=== PATIENT | male | born 1950 | race Hispanic/Latino ===

== ENCOUNTER 2023-12-09 10:05 | Inpatient (IN) | payer OTHER ==
[2023-12-09 10:33] LABS: Absolute Basophils 0.1 K/uL (0-0.5); Absolute Eosinophils 0.4 K/uL (0-0.5); Absolute Lymphocytes (CBC) 2.9 K/uL (0.7-4.9); Absolute Monocytes 1.1 K/uL (0.1-1.3); Absolute Neutrophil 5.7 K/uL (1.8-8.0); Basophils % 0.9 % (0-1.3); Eosinophils % 3.8 % (0-4.4); Hematocrit 30.7 % (39.6-49.0); Hemoglobin 10.3 g/dL (13.6-17.9); Lymphocytes % 28.3 % (15.3-44.8); MCH 32.3 pg (27.0-35.0); MCHC 33.5 g/dL (32.0-36.0); MCV 96.5 fL (80-100); MPV 9.4 fL (7.6-11.3); Nucleated Red Blood Cells % 0.1 % (0-0); Platelets 233 thou/uL (152-406); RBC Red Blood Cell Count 3.19 M/uL (4.33-5.43); Red Cell Distribution Width 16.4 % (12.1-15.2)
[2023-12-09 10:38] LABS: PT Prothrombin Time 10.4 SECONDS (9.4-12.5); PTT, Activated Partial Thromb 28.4 SECONDS (24.3-36.9); Protime INR 0.93
[2023-12-09] MEDS ORDERED: NA CHLORIDE 0.9% 250 ML ONE (11:02)
[2023-12-09] MEDS ORDERED: CEFTRIAXONE 1000 MG/VIAL ONE (11:02)
[2023-12-09] MEDS ORDERED: AZITHROMYCIN 500 MG INJ IVPB ONE (11:02)
[2023-12-09] MEDS ORDERED: NA CHLORIDE 0.9% 100 ML ONE (11:07)
--- NOTE | 2023-12-09 11:18 | RAD REPORT ---
Procedure: Chest Single View HISTORY: Short of breath COMPARISON: none FINDINGS: Mild bilateral pulmonary opacities. No significant pleural effusion noted. The heart is borderline enlarged. IMPRESSION: Mild bilateral pulmonary opacities probably mild interstitial pulmonary edema
[2023-12-09 11:44] LABS: Albumin 3.4 g/dL (3.4-5.0); Anion Gap 8.7 mEq/L (5.0-15.0); Bilirubin Total 0.5 mg/dL (0.2-1.0); Globulin 3.5 g/dL (2.3-3.5); Potassium 3.7 mEq/L (3.5-5.1); Protein, Total 6.9 g/dL (6.4-8.2)
[2023-12-09 11:52] LABS: Troponin High Sensitivity 164.3 pg/mL (<58.9)
--- NOTE | 2023-12-09 12:15 | EDPHYS ---
Physician Documentation [facility] Name: Chuck Caruso Age: 73 yrs Sex: Male : 1950 Arrival Date: 12/09/2023 Time: 10:05 Bed 8 Private MD: ED Physician Dequan Resendiz HPI: 12/08 12:46 This 73 yrs old Male presents to ER via EMS with complaints of Shortness Of kb Breath. 12:46 Pt is a 73 year old male who presents for shortness of breath that started this kb morning. Denies chest pain, fever, cough . Denies alleviating factors. Aggravated by exertion. . Historical: - Allergies: 10:13 No Known Allergies; ap3 - Immunization history:: Adult Immunizations unknown. - Infectious Disease History:: Denies. - Social history:: Smoking status: Patient denies any tobacco usage or history of. ROS: 10:21 Constitutional: As per HPI kb Exam: 10:19 Constitutional: This is a well developed, well nourished patient who is awake, alert, kb and in no acute distress. Head/Face: Normocephalic, atraumatic. ENT: Moist Mucous membranes Abdomen/GI: Soft, non-tender. No distention Skin: Warm, dry with normal turgor. Normal color. Neuro: Awake and alert, GCS 15, oriented to person, place, time, and situation. Moves all extremities 10:19 Cardiovascular: Rate: tachycardic, 10:19 Cardiovascular: Edema: 2+ edema to left lower extremity, 10:19 ECG was reviewed by the Attending Physician. 10:19 Respiratory: moderate respiratory distress is noted, Respirations: labored breathing, Breath sounds: wheezing: expiratory that is mild, is heard in the right middle lobe, right lower lobe, right posterior middle lobe and right posterior lower lobe, Vital Signs: 10:08 BP 119 / 61; Pulse 113; Resp 32; Temp 98.1; Pulse Ox 87% on 5 lpm NC; Weight 74.39 kg; ap3 Height 5 ft. 6 in. ; 10:36 BP 127 / 75; Pulse 85; Pulse Ox 99% on BiPAP; ap3 11:22 BP 120 / 60; Pulse 93; Resp 27; Pulse Ox 99% on BiPAP; ap3 13:23 BP 109 / 63; Pulse 75; Resp 18; Pulse Ox 98% on BiPAP; ap3 10:08 Body Mass Index 26.47 (74.39 kg, 167.64 cm) ap3 MDM: 10:54 Patient medically screened. kb 12:46 Differential diagnosis: CHF exacerbation, pulmonary edema, Pulmonary Embolism. Data kb reviewed: vital signs, nurses notes. Consideration of Admission/Observation Patient was admitted/placed on observation. Escalation of care including admission/observation considered. Management of patient was discussed with the following: Hospitalist: Dr Doherty accepts pt for admission. Historians other than the Patient: EMS: [facility]. Counseling: I had a detailed discussion with the patient and/or guardian regarding the historical points, exam findings, and any diagnostic results supporting the discharge/admit diagnosis, lab results, radiology results, the need for further work-up and treatment in the hospital. 12/08 10:17 Order name: Blood Culture Adult (2) kb 12/08 10:17 Order name: CBC with Diff; Complete Time: 10:53 kb 12/08 10:17 Order name: CMP; Complete Time: 11:53 kb 12/08 10:17 Order name: Lactate w/ 2H reflex if indic.; Complete Time: 10:53 kb 12/08 10:17 Order name: Protime (+inr); Complete Time: 10:53 kb 12/08 10:17 Order name: Ptt, Activated; Complete Time: 10:53 kb 12/08 10:17 Order name: Troponin High Sensitivity; Complete Time: 11:53 kb 12/08 12:10 Order name: BNP; Complete Time: 12:52 kb 12/08 12:53 Order name: Ghost Lactate-NO COLLECT Timer; Complete Time: 12:56 EDMS 12/08 13:27 Order name: PTT, Activated Partial Thromb; Complete Time: 09:59 EDMS 12/08 13:27 Order name: Basic Metabolic Panel EDMS 12/08 13:27 Order name: Basic Metabolic Panel; Complete Time: 09:59 EDMS 12/08 13:27 Order name: Basic Metabolic Panel EDMS 12/08 13:27 Order name: Basic Metabolic Panel EDMS 12/08 13:27 Order name: CBC with Automated Diff EDMS 12/08 13:27 Order name: CBC with Automated Diff; Complete Time: 09:59 EDMS 12/08 13:27 Order name: CBC with Automated Diff EDMS 12/08 13:27 Order name: CBC with Automated Diff EDMS 12/08 13:27 Order name: Troponin High Sensitivity EDMS 12/08 13:27 Order name: Troponin High Sensitivity; Complete Time: 09:59 EDMS 12/08 13:27 Order name: Troponin High Sensitivity; Complete Time: 09:59 EDMS 12/08 13:27 Order name: Troponin High Sensitivity; Complete Time: 09:59 EDMS 12/08 14:21 Order name: Lactate Sepsis 2 HR Follow-up; Complete Time: 14:21 EDMS 12/08 10:17 Order name: Chest Single View XRAY; Complete Time: 11:20 kb 12/08 13:27 Order name: Echo with Doppler EDMS 12/08 13:27 Order name: CONS Physician Consult EDMS 12/08 10:17 Order name: Accucheck; Complete Time: 10:31 kb 12/08 10:17 Order name: Cardiac monitoring; Complete Time: 10:28 kb 12/08 10:17 Order name: EKG - Nurse/Tech; Complete Time: 10:28 kb 12/08 10:17 Order name: IV Saline Lock - Large Bore; Complete Time: 10:28 kb 12/08 10:17 Order name: Labs collected and sent; Complete Time: 10:28 kb 12/08 10:17 Order name: O2 Per Protocol; Complete Time: 10:28 kb 12/08 10:17 Order name: O2 Sat Monitoring; Complete Time: 10:28 kb 12/08 10:17 Order name: Vital Signs; Complete Time: 10:28 kb 12/08 10:44 Order name: Labs - recollect needed; Complete Time: 10:56 eb EC:19 Rate is 101 beats/min. Rhythm is regular. QRS [place] is Normal. MN interval is normal at kb 146 msec. QRS interval is normal at 84 msec. QT interval is normal at 438 msec. Administered Medications: 11:21 Drug: Rocephin IV 1 grams IV at calculated rate once; Given slow IV push per pharmacy ap3 instructions Route: IV; Rate: calculated rate; Site: left hand; 12:04 Follow up: IV Status: Completed infusion; IV Intake: 50ml ap3 11:47 Drug: Zithromax IVPB 500 mg IVPB once over 1 hrs; mix in 250 mL NS Route: IVPB; Infused ap3 Over: 1 hrs; Site: left hand; 13:36 Follow up: IV Status: Completed infusion; IV Intake: 250ml ap3 13:05 Drug: Furosemide IVP 20 mg IVP once; give over 2 minutes Route: IVP; Site: left hand; mb9 13:36 Follow up: Response: No adverse reaction ap3 13:05 Drug: Aspirin PO Chewable Tablet 324 mg PO once; 81 mg tablets x 4 Route: PO; mb9 13:36 Follow up: Response: No adverse reaction ap3 Disposition: 12/09 09:58 Critical Care:. kb Disposition Summary: 12/09/23 12:14 Hospitalization Ordered Notes: Hospitalization Status: Inpatient Admission kb Provider: Олег Doherty Location: Telemetry/MedSur (Inpatient) kb Condition: Stable kb Problem: new kb Symptoms: are unchanged kb Bed/Room Type: Standard Room Assignment: 230(12/09/23 13:35) eb Diagnosis - Acute pulmonary edema kb - Elevated troponin kb Forms: - Medication Reconciliation Form kb - SBAR form kb - Leadership Thank You Letter kb Critical care time excluding procedures: 09:58 Critical care time: Bedside Care: 10 minutes, Consultation: 10 minutes, Family kb Intervention: 10 minutes. Total time: 30 minutes Addendum: 12/11/2023 17:55 I was immediately available for consultation during this patient's visit. I did not e c2 personally see the patient or discuss the patient with the ANDERS. . Signatures: Dispatcher [employer] EDMS Andree Morales, DEEPTI-C FILM PRINTER-Ckb Angela Herrera FNP-C FILM PRINTER-Csnw Whitney Guevara RN RN [email or web address] Casi Echeverria Mary Beth RN RN mb9 Dequan Resendiz MD MD ec2 Corrections: (The following items were deleted from the chart) 12/08 10:18 10:18 BLOOD CULTURE*+BA.LAB.BRZ ordered. EDMS EDMS 10:18 10:18 CBC+H.LAB.BRZ ordered. EDMS EDMS 10:18 10:18 COMPREHENSIVE METABOLIC PANEL+C.LAB.BRZ ordered. EDMS EDMS 10:18 10:18 LACTATE+C.LAB.BRZ ordered. EDMS EDMS 10:18 10:18 PROTIME (+INR)+COAG.LAB.BRZ ordered. EDMS EDMS 10:18 10:18 PTT, ACTIVATED+COAG.LAB.BRZ ordered. EDMS EDMS 10:18 10:18 Troponin High Sensitivity+C.LAB.BRZ ordered. EDMS EDMS 10:18 10:18 Chest Single View+RAD.RAD.BRZ ordered. EDMS EDMS 10:19 10:19 BiPap ([employer] Only)+RC.RAD.BRZ ordered. EDMS EDMS 12:10 12:10 PROBNP+C.LAB.BRZ ordered. EDMS EDMS 12:19 12:19 Chest For PE Angio+CT.RAD.BRZ ordered. EDMS EDMS 12:33 12:33 Chest For PE Angio+CT.RAD.BRZ ordered. EDMS EDMS 12:47 12:46 Pt is a 73 year old male who presents for shortness of breath that started this kb morning. Denies chest pain. Denies alleviating factors. Aggravated by exertion. . kb 13:35 12:14 kb eb
--- NOTE | 2023-12-09 12:15 | ER ---
Nurse's Notes [facility] Name: Chuck Caruso Age: 73 yrs Sex: Male : 1950 Arrival Date: 12/09/2023 Time: 10:05 Bed 8 Private MD: Diagnosis: Acute pulmonary edema;Elevated troponin Presentation: 12/08 10:08 Chief complaint: EMS states: they were called to the patient being short of breath and ap3 having chest pain. EMS started a 20g left hand and administered an A\T\A treatment and 125mg solumedrol IV X's 1 ALTERATIONS TAILOR. Coronavirus screen: Client presents with at least one sign or symptom that may indicate coronavirus-19. Ebola Screen: No symptoms or risks identified at this time. Initial Sepsis Screen: Does the patient meet any 2 criteria? RR > 20 per min. HR > 90 bpm. Yes Does the patient have a suspected source of infection? No. Patient's initial sepsis screen is negative. Risk Assessment: Do you want to hurt yourself or someone else? Patient reports no desire to harm self or others. Onset of symptoms was December 09, 2023 at 08:30. Care prior to arrival: Medication(s) given: Albuterol Neb x 1, Atrovent Neb x 1, solumedrol 125mg IV IV initiated. 20 GA, in the left hand. Transition of care: patient was not received from another setting of care. 10:08 Method Of Arrival: EMS: [facility] ap3 10:08 Acuity: HENRRY 2 ap3 Triage Assessment: 10:14 General: Appears distressed, Behavior is cooperative. Pain: Denies pain. Neuro: Level ap3 of Consciousness is awake, alert, obeys commands, Oriented to person, place, time, situation. Cardiovascular: Patient's skin is warm and dry. Respiratory: Reports shortness of breath Airway is patent Respiratory effort is labored, Respiratory pattern is tachypnea Onset: The symptoms/episode began/occurred this morning. Historical: - Allergies: 10:13 No Known Allergies; ap3 - Immunization history:: Adult Immunizations unknown. - Infectious Disease History:: Denies. - Social history:: Smoking status: Patient denies any tobacco usage or history of. Screenin:14 Abuse screen: Denies threats or abuse. Nutritional screening: No deficits noted. ap3 Tuberculosis screening: No symptoms or risk factors identified. 11:49 [facility] ED Fall Risk Assessment (Adult) History of falling in the last 3 months, ap3 including since admission No falls in past 3 months (0 pts) Confusion or Disorientation No (0 pts) Intoxicated or Sedated No (0 pts) Impaired Gait Yes (1 pt) Mobility Assist Device Used Yes (1 pt) Altered Elimination No (0 pt) Score/Fall Risk Level 3 or more points = High Risk Oriented to surroundings, Maintained a safe environment, Educated pt \T\ family on fall prevention, incl call for assistance when getting out of bed, Assessed \T\ reinforced patient's understanding of fall precautions, Hourly rounding (assess needs \T\ fall precautionary measures) done, Used ambulatory aids as needed (educated on \T\ assisted with), Used gait belt as appropriate Implemented a Fall Risk Plan of Care, Apply high fall risk patient identification: yellow non skid footwear/ fall signage, Remained w/in arm's length of patient and in sight while toileting, Offered frequent toileting (1:1 observation), Remained with patient while ambulating, Utilized family, sitter, or virtual litigation attorney as indicated. Assessment: 11:49 Reassessment: Patient and/or family updated on plan of care and expected duration. Pain ap3 level reassessed. General: Appears comfortable. Neuro: Level of Consciousness is awake, alert, obeys commands, Oriented to person, place, time, situation. Cardiovascular: Patient's skin is warm and dry. Respiratory: Airway is patent Respiratory effort is even, Respiratory pattern is regular, symmetrical, Patient placed on BiPAP:. 13:24 Reassessment: Patient and/or family updated on plan of care and expected duration. Pain ap3 level reassessed. Patient is alert, oriented x 3, equal unlabored respirations, skin warm/dry/pink. General: Appears in no apparent distress. comfortable, Behavior is calm, cooperative, appropriate for age. Neuro: Level of Consciousness is awake, alert, obeys commands, Oriented to person, place, time, situation. Vital Signs: 10:08 BP 119 / 61; Pulse 113; Resp 32; Temp 98.1; Pulse Ox 87% on 5 lpm NC; Weight 74.39 kg; ap3 Height 5 ft. 6 in. ; 10:36 BP 127 / 75; Pulse 85; Pulse Ox 99% on BiPAP; ap3 11:22 BP 120 / 60; Pulse 93; Resp 27; Pulse Ox 99% on BiPAP; ap3 13:23 BP 109 / 63; Pulse 75; Resp 18; Pulse Ox 98% on BiPAP; ap3 10:08 Body Mass Index 26.47 (74.39 kg, 167.64 cm) ap3 ED Course: 10:07 Patient arrived in ED. ap3 10:12 Dequan Resendiz MD is Attending Physician. ec2 10:13 Triage completed. ap3 10:13 Initial lab(s) drawn, by me, sent to lab. Inserted saline lock: 20 gauge in right mb9 forearm, using aseptic technique. Blood collected. Flushed with 10 mL NS. 10:14 Patient has correct armband on for positive identification. Bed in low position. Call ap3 light in reach. Side rails up X2. Client placed on continuous cardiac and pulse oximetry monitoring. NIBP monitoring applied. quality assurance monitor on. Pulse ox on. NIBP on. 10:15 Andree Morales FNP-C is [facility]. ec2 10:15 Whitney Guevara, FLORA is Primary Nurse. ap3 10:15 Arm band placed on right wrist. ap3 10:19 EKG done, by ED staff, by pet care technician. rs6 10:22 First set of blood cultures drawn by me. ap3 10:52 Notified Nurse Practitioner and/or Physician Log Getter of a critical lab result(s), ll1 lactate 2.3 DEEPTI Steve. 11:06 Chest Single View XRAY In Process Unspecified. EDMS 11:49 Warm blanket given. ap3 11:50 Provided Education on: medication prior to administration. ap3 11:52 Notified Nurse Practitioner and/or Physician Log Getter of a critical lab result(s), ll1 troponin 164.3. 12:14 Stephane Doherty MD is Hospitalizing Provider. kb 12:14 Олег Doherty MD is Hospitalizing Provider. kb 13:23 Radiology exam delayed due to IV insertion attempt and/or patient not having sm9 appropriate IV at this time. 14:50 No provider procedures requiring assistance completed. mb9 14:50 Patient admitted, IV remains in place. mb9 Administered Medications: 11:21 Drug: Rocephin IV 1 grams IV at calculated rate once; Given slow IV push per pharmacy ap3 instructions Route: IV; Rate: calculated rate; Site: left hand; 12:04 Follow up: IV Status: Completed infusion; IV Intake: 50ml ap3 11:47 Drug: Zithromax IVPB 500 mg IVPB once over 1 hrs; mix in 250 mL NS Route: IVPB; Infused ap3 Over: 1 hrs; Site: left hand; 13:36 Follow up: IV Status: Completed infusion; IV Intake: 250ml ap3 13:05 Drug: Furosemide IVP 20 mg IVP once; give over 2 minutes Route: IVP; Site: left hand; mb9 13:36 Follow up: Response: No adverse reaction ap3 13:05 Drug: Aspirin PO Chewable Tablet 324 mg PO once; 81 mg tablets x 4 Route: PO; mb9 13:36 Follow up: Response: No adverse reaction ap3 Medication: 11:50 VIS not applicable for this client. ap3 Intake: 12:04 IV: 50ml; Total: 50ml. ap3 13:36 IV: 250ml; Total: 300ml. ap3 Outcome: 12:14 Decision to Hospitalize by Provider. kb 14:50 Admitted to Med/surg mb9 14:50 Condition: stable 14:50 Instructed on the need for admit, 15:01 Patient left the ED. ap3 Signatures: Dispatcher [employer] Andree Griggs, DEEPTI-C WEIGHT CHECKER-CkWhitney Garcia RN RN ap3 Casi Echeverria Lynsay RN RN ana lilia1 Edwina Velasco RN RN mb9 Dequan Resendiz MD MD 2 Samreen Berg Leroy Hardy rs6 Corrections: (The following items were deleted from the chart) 10:44 10:35 Khurram the linux unix administrator aerospace control and warning systems for Dr. Chawla called asked for us to transport eb the patient to [facility] at [id number] in [place]/ the patient is a direct admit/ Dr. Resendiz has given report to Dr. Chawla so no nurse report needs to be given. eb
[2023-12-09] MEDS ORDERED: FUROSEMIDE 20 MG/ 2ML VIAL ONE (12:27)
[2023-12-09] MEDS ORDERED: ASPIRIN 81 MG CHEWABLE TABLET ONE (12:28)
--- NOTE | 2023-12-09 12:44 | P.HP ---
Certification for Inpatient Patient admitted to: Inpatient With expected LOS: >2 Midnights Patient will require the following post-hospital care: None Practitioner: I am a practitioner with admitting privileges, knowledge of patient current condition, hospital course, and medical plan of care. Services: Services provided to patient in accordance with Admission requirements found in Title 42 Section 412.3 of the Code of Federal Regulations Patient History Date of Service: 12/09/23 Primary Care Provider: Walt Gama MD Reason for admission: Chest pain, shortness of breath History of Present Illness: Mr. Caruso is a 73-year-old gentleman with a past medical history of hypertension, vascular disease/PVD, and recent AK. He states he was in his normal state of health when he went to sleep and awoke with significant chest pain and shortness of breath. EMS was called and he received Solu-Medrol, albuterol, and Atrovent en route to the emergency department. On arrival to the emergency department, his SpO2 was 87% on 5 L of O2. BiPAP was initiated on his arrival and now patient is comfortable, chest pain-free, and SpO2 is 99 to 100%. We will admit Mr. Caruso for further evaluation and treatment with consultation to cardiology. EKG sinus tach rhythm with possible lateral ischemia with flipped T waves in V5 and V6, rate 101 Labs: WBC 10.2, H/H 10.3/30.7 with anemia of chronic disease picture, INR 0.93, electrolytes unremarkable with a creatinine of 1.26, GFR 61 Lactic acid 2.3 and troponin 164.3, with a BNP of 6346 Imaging: Mild bilateral pulmonary opacities probably mild interstitial pulmonary edema, requested CT chest angio for PE rule out Allergies No Known Allergies Allergy (Unverified 12/09/23 13:03) Home medications list reviewed: Yes (Called [facility]) - Past Medical/Surgical History Has patient received pneumonia vaccine in the past: No -: Hypertension -: Vascular pathology -: AK denies stent placement -: CKD -: Right BKA -: Appendectomy -: Right shoulder surgery -: Bilateral peripheral bypass Psychosocial/ Personal History: Lives alone. AK in September 2023. Smokes half pack a week. Sees Dr. Binta HARDWICK MD and Dr. Vogt - Family History Father -: Cancer Mother -: Heart disease, Other (see notes) ( of cerebral aneurysm) Brother -: Heart disease, Hypertension, Other (see notes) (Triple bypass, a second brother of cerebral aneurysm) - Social History Smoking Status: Current every day smoker Counseled patient to stop smoking for: more than 10 minutes Smoking therapy provided: Yes Patient receptive to therapy: Yes (Down to half a pack a week) Alcohol use: No CD- Drugs: No Caffeine use: Yes Place of Residence: Home Review of Systems 10-point ROS is otherwise unremarkable General: Malaise ENT: Unremarkable Respiratory: Shortness of Breath, SOB with Excertion Cardiovascular: Chest Pain, Orthopnea Gastrointestinal: Unremarkable Genitourinary: Unremarkable Musculoskeletal: Pedal edema Integumentary: Unremarkable Neurological: Unremarkable Lymphatics: Unremarkable Physical Examination - Vital Signs Pulse: 88 Respirations: 20 Pulse Ox (%): 99 (On BiPAP) - Physical Exam General: Alert, In no apparent distress, Oriented x3 HEENT: Atraumatic, Normocephalic Neck: Supple Respiratory: Crackles/rales (Bilateral bases), Other (States he likes BiPAP, chest pain relieved) Cardiovascular: Regular rate/rhythm, Edema (Left lower extremity) Capillary refill: >2 Seconds Gastrointestinal: Soft and benign Musculoskeletal: Other (Right BKA) Integumentary: Other (Warm and dry) Neurological: Normal speech, Normal tone, Normal affect Lymphatics: No axilla or inguinal lymphadenopathy External genitalia: Deferred Rectal: Deferred - Studies Laboratory Data (last 24 hrs) 12/09/23 12/09/23 12/09/23 11:15 10:22 10:22 WBC 10.20 Hgb 10.3 L Hct 30.7 L Plt Count 233 PT 10.4 INR 0.93 APTT 28.4 Sodium 143 Potassium 3.7 BUN 16 Creatinine 1.26 Glucose 121 H Total Bilirubin 0.5 AST 22 ALT 30 Alkaline Phosphatase 87 Assessment and Plan - Plan Acute hypoxic respiratory failure secondary to fluid overload with lactic acidosis and elevated troponin hx AK in September - at [facility], states he did not get PCI Pt with SpO2 87% on 5L on arrival to ED; placed on BiPap CT chest for PE Telemetry Repeat lactate Strict I and O Serial troponin and EKG Cardiology consultation ECHO if okay with cardiology try to obtain records from [facility] Antiplatelet therapy, anticoagulation, beta-fransisco, statin, and O2 as needed IV morphine for pain control Nitro prn Vasculopathic History of right below the knee amputation Bilateral peripheral artery bypass Left lower extremity ultrasound Meds as above VTE/GI prophylaxis Plan to discharge in: Greater than 2 days - Advance Directives Does patient have a Living Will: No Does patient have a Durable POA for Healthcare: No - Code Status/Comfort Care Code Status Assessed: Yes (Full)
[2023-12-09] MEDS ORDERED: MORPHINE 4 MG/ML SYR IV PRN (13:04)
[2023-12-09] MEDS ORDERED: SODIUM CHLORIDE 0.9% 10ML INJ IV PRN (13:04)
[2023-12-09] MEDS: GABAPENTIN 300 MG CAP PO SCH (14:00)
[2023-12-09 14:29] VITALS: BMI 26.4
[2023-12-09] MEDS: FUROSEMIDE 20 MG/ 2ML VIAL IV SCH (16:17)
[2023-12-09] MEDS: METOPROLOL TAR 25 MG TAB PO SCH (17:00)
--- NOTE | 2023-12-09 17:10 | RAD REPORT ---
EXAMINATION: CTA CHEST PE CLINICAL INDICATION: Shortness of breath TECHNIQUE: 100 cc 370 Isovue administered intravenously. This examination was performed according to an angiographic protocol with 3D post-processing. This involves 3D reconstructions, MIPs, volume rendered images and/or shaded surface rendering. One or more of the following dose reduction techniqu es were used: Automated exposure control, adjustment of the mA and/or kV according to patient size, and/or iterative reconstruction. Unless otherwise specified, incidental findings do not require dedic ated imaging follow-up. [id number]. COMPARISON: No prior exam. FINDINGS: A pulmonary embolus is not seen. An aortic dissection not noted. Small bilateral pleural effusions. No pericardial effusion. Cardiomegaly Mild bilateral pulmonary opacities. IMPRESSION: No evidence of a pulmonary embolism Mild CHF
[2023-12-09] MEDS: ENOXAPARIN 80 MG/0.8 ML SQ SCH (21:04)
[2023-12-09] MEDS: ATORVASTATIN 40 MG TAB PO SCH (21:04)
[2023-12-10 05:38] LABS: Absolute Lymphocytes (CBC) 1.2 K/uL (0.7-4.9); Absolute Monocytes 0.4 K/uL (0.1-1.3); Absolute Neutrophil 5.2 K/uL (1.8-8.0); Basophils % 0.3 % (0-1.3); Hematocrit 25.4 % (39.6-49.0); Hemoglobin 8.3 g/dL (13.6-17.9); Lymphocytes % 17.2 % (15.3-44.8); MCH 31.3 pg (27.0-35.0); MCHC 32.4 g/dL (32.0-36.0); MCV 96.6 fL (80-100); MPV 9.5 fL (7.6-11.3); Monocytes % 5.9 % (3.3-12.3); Neutrophils % 76.6 % (41.7-73.7); Platelets 207 thou/uL (152-406); RBC Red Blood Cell Count 2.63 M/uL (4.33-5.43); Red Cell Distribution Width 16.5 % (12.1-15.2)
[2023-12-10] MEDS ORDERED: METOPROLOL TAR 25 MG TAB PO SCH (06:00)
[2023-12-10 06:08] LABS: Troponin High Sensitivity 859.7 pg/mL (<58.9)
[2023-12-10] MEDS ORDERED: PANTOPRAZOLE 40 MG INJ IVP SCH (09:00)
[2023-12-10] MEDS: lisinopriL 10 MG TAB PO SCH (09:00)
[2023-12-10] MEDS: PNEUMOCOCCAL VACCINE 0.5 ML IMVAC ONE (10:00)
[2023-12-10] MEDS: POTASSIUM CL SA 10 MEQ TAB PO SCH (10:36)
[2023-12-10] MEDS: ASPIRIN EC 81 MG TAB PO SCH (10:37)
[2023-12-10] MEDS: cilostazoL 100 MG TAB PO SCH (10:37)
--- NOTE | 2023-12-10 10:45 | P.CNS ---
Date of Consult: 12/10/23 Primary Care Provider: Walt Gama MD Chief Complaint: Chest pain, shortness of breath History of Present Illness: Patient with PMH of PAD, kidney disease, presented with chest pain, pressure in nature across chest happened yesterday associated with SOB, swelling of his lower extremities, report that he was admitted ti [facility] in 09/2023 were he was found unrepsonsive and was on dialysis for few days, at that time he had NSTEMI but coronary angiogram was not done due to MAGALI, denies palpitations, no syncope. Allergies No Known Allergies Allergy (Unverified 12/09/23 13:03) Home medications list reviewed: Yes Home Medications: Amlodipine [Norvasc*] 5 mg PO DAILY 12/09/23 Aspirin 81 mg PO DAILY 12/09/23 Atorvastatin Calcium 40 mg PO BEDTIME 12/09/23 Ergocalciferol (Vitamin D2) [Vitamin D 50,000 Unit Cap] 50,000 unit PO EVERY 7TH DAY 12/09/23 Gabapentin 300 mg PO TID 12/09/23 cilostazoL [Cilostazol] 100 mg PO DAILY 12/09/23 hydroCHLOROthiazide [Hydrochlorothiazide] 12.5 mg PO DAILY 12/09/23 lisinopriL [Lisinopril] 10 mg PO DAILY 12/09/23 - Past Medical/Surgical History -: Hypertension -: Vascular pathology -: OH denies stent placement -: CKD -: Right BKA -: Appendectomy -: Right shoulder surgery -: Bilateral peripheral bypass -: Right eye Psychosocial/ Personal History: Lives alone. [place] in September 2023. Smokes half pack a week. Sees Dr. Binta HARDWICK MD and Dr. Vogt - Family History Father Medical History: Cancer Mother Medical History: Heart disease, Other (see notes) Brother Medical History: Heart disease, Hypertension, Other (see notes) - Social History Alcohol use: No CD- Drugs: No Caffeine use: Yes Place of Residence: Home Review of Systems 10-point ROS is otherwise unremarkable Physical Examination Temp Pulse Resp BP Pulse Ox 98.2 F 79 20 103/64 98 12/10/23 08:00 12/10/23 08:00 12/10/23 08:00 12/10/23 08:00 12/10/23 08:00 General: Alert, In no apparent distress HEENT: Atraumatic, PERRLA, Mucous membr. moist/pink, EOMI, Sclerae nonicteric Neck: Supple, 2+ carotid pulse no bruit, No LAD, Without JVD or thyroid abnormality Respiratory: Clear to auscultation bilaterally, Normal air movement Cardiovascular: Regular rate/rhythm, Normal S1 S2 Gastrointestinal: Normal bowel sounds, No tenderness Musculoskeletal: No tenderness Integumentary: No rashes Neurological: Normal gait, Normal speech, Normal tone, Normal affect Lymphatics: No axilla or inguinal lymphadenopathy Laboratory Data (last 24 hrs) 12/09/23 11:15 Sodium 143 Potassium 3.7 BUN 16 Creatinine 1.26 Glucose 121 H Total Bilirubin 0.5 AST 22 ALT 30 Alkaline Phosphatase 87 - Problems (1) NSTEMI (non-ST elevated myocardial infarction) Current Visit: Yes Status: Acute Plan: Patient troponin trending donw, explained in details to patient about need for coronary angiogram and risk for HD and agrees to proceed. keep NPO for coronary angiogram. Heparin drip ACS protocol ASA 81 mg daily Lipitor Echo (2) Acute heart failure Current Visit: Yes Status: Acute Plan: continue Lasix 20 mg IV BID Will get LVEDP in heart cath monitor input and output and electrolytes. (3) HTN (hypertension) Current Visit: Yes Status: Acute Plan: continue current medications.
--- NOTE | 2023-12-10 10:50 | P.PN ---
Date of Service: 12/10/23 subjective NPO LHC, heparin gtt, NSTEMI, on bipap Review of Systems 10-point ROS is otherwise unremarkable unless listed in HPI Physical Examination Vital signs reviewed - Physical Exam General: Alert, In no apparent distress, Oriented x3 HEENT: Atraumatic, Normocephalic Neck: Supple Respiratory: Crackles/rales (Bilateral bases), Other on bipap Cardiovascular: Regular rate/rhythm, Edema (Left lower extremity) Capillary refill: >2 Seconds Gastrointestinal: Soft and benign Musculoskeletal: Other (Right BKA) Integumentary: Other (Warm and dry) Neurological: Normal speech, Normal tone, Normal affect Assessment and Plan - Plan Acute hypoxic respiratory failure secondary to decompensated heart failure Acute on chronic heart failure Small bilateral pleural effusions lactic acidosis elevated troponin NSTEMI BiPAP, ECHO ordered Cardiology consulted keep NPO for coronary angiogram. Heparin drip ACS protocol hx [place] in September - at [facility], states he did not get PCI Pt with SpO2 87% on 5L on arrival to ED; placed on BiPap CT chest negative for PE Strict I and O Serial troponin and EKG Cardiology consultation ECHO if okay with cardiology try to obtain records from [facility] Antiplatelet therapy, anticoagulation, beta-fransisco, statin, and O2 as needed IV morphine for pain control Nitro prn Right below the knee amputation History of right below the knee amputation Bilateral peripheral artery bypass Left lower extremity ultrasound Fall precaution VTE/GI prophylaxis heparin drip Full code Plan to discharge in: Greater than 2 days - Advance Directives Does patient have a Living Will: No Does patient have a Durable POA for Healthcare: No - Code Status/Comfort Care Code Status Assessed: Yes (Full) time with patient 35 <Rocio Herman - Last Filed: 12/10/23 21:16> Patient was seen and examined. Events of the last 24 hours have been noted. Spoke with with ANDERS regarding patient's clinical picture after evaluating and examining the patient independently. I performed a substantial part of the MDM during this patient's care today. I personally made or approved the documented management plan and acknowledge its risk of complications. I agree with the findings and documentation provided in the ANDERS's notes. <Jordon Murry - Last Filed: 12/30/23 23:45>
--- NOTE | 2023-12-10 12:31 | ECHO ---
HEIGHT: 5 ft 6 in WEIGHT: 164 lb 0 oz DATE OF STUDY: 12/10/[address]: Angela Herrera RACETRACK STEWARD-BC 2-DIMENSIONAL: YES M.MODE: YES DOPPLER: YES COLOR FLOW: YES TDS: PORTABLE: YES DEFINITY: BUBBLE STUDY: DIAGNOSIS: HYPOXIA, CHEST PRESSURE, RECENT MYOCARDIAL INFARCTION SEPTEMBER 2023 CARDIAC HISTORY: CATHERIZATION: SURGERY: PROSTHETIC VALVE: PACEMAKER: MEASUREMENTS (cm) DIASTOLIC (NORMALS) SYSTOLIC (NORMALS) IVSd 1.1 (0.6-1.2) LA Diam 4.8 (1.9-4.0) LVEF 50-55% LVIDd 5.3 (3.5-5.7) LVIDs 3.9 (2.0-3.5) %FS 26% LVPWd 1.0 (0.6-1.2) Ao Diam 2.5 (2.0-3.7) 2 DIMENSIONAL ASSESSMENT: RIGHT ATRIUM: NORMAL LEFT ATRIUM: MILDLY DILATED RIGHT VENTRICLE: NORMAL LEFT VENTRICLE: NORMAL TRICUSPID VALVE: MILD TRICUSPID REGURGITATION MITRAL VALVE: MODERATE MITRAL REGURGITATION PULMONIC VALVE: NORMAL AORTIC VALVE: NORMAL PERICARDIAL EFFUSION: NONE AORTIC ROOT: NORMAL LEFT VENTRICULAR WALL MOTION: NORMAL DOPPLER/COLOR FLOW: GRADE II DIASTOLIC DYSFUNCTION COMMENTS: 1. LOW NORMAL LEFT VENTRICULAR SYSTOLIC FUNCTION, EJECTION FRACTION 50-55%, NORMAL WALL MOTION 2. GRADE II DIASTOLIC DYSFUNCTION 3. MODERATE MITRAL REGURGITATION 4. ELEVATED FILLING PRESSURE (RIGHT ATRIAL PRESSURE GREATER THAN 20 mmHg) 5. MODERATE PULMONARY HYPERTENSION (RIGHT VENTRICULAR SYSTOLIC PRESSURE 50-55 mmHg) TECHNOLOGIST: MICHELLE PANTOJA [facility]
[2023-12-11 05:57] LABS: Absolute Eosinophils 0.1 K/uL (0-0.5); Absolute Lymphocytes (CBC) 2.8 K/uL (0.7-4.9); Absolute Monocytes 0.7 K/uL (0.1-1.3); Absolute Neutrophil 3.2 K/uL (1.8-8.0); Basophils % 0.7 % (0-1.3); Eosinophils % 0.9 % (0-4.4); Hematocrit 23.5 % (39.6-49.0); Lymphocytes % 40.4 % (15.3-44.8); MCH 32.3 pg (27.0-35.0); MCHC 33.9 g/dL (32.0-36.0); MCV 95.4 fL (80-100); MPV 9.5 fL (7.6-11.3); Monocytes % 10.9 % (3.3-12.3); Neutrophils % 47.1 % (41.7-73.7); Nucleated Red Blood Cells % 0.2 % (0-0); Platelets 193 thou/uL (152-406); RBC Red Blood Cell Count 2.46 M/uL (4.33-5.43); Red Cell Distribution Width 16.8 % (12.1-15.2)
[2023-12-11 06:10] LABS: Anion Gap 7.9 mEq/L (5.0-15.0); Potassium 3.9 mEq/L (3.5-5.1)
[2023-12-11] MEDS ORDERED: NA CHLORIDE 0.9% 500 ML ONE (07:32)
[2023-12-11] MEDS ORDERED: HEPA 1000U/500MLS 2,000 UNIT/1,000 ML BAG IV ONE (07:32)
[2023-12-11] MEDS: FENTANYL CITR 100 MCG/2 ML ONE (07:38)
[2023-12-11] MEDS: MIDAZOLAM HCL 2 MG/2 ML INJ ONE (07:38)
[2023-12-11] MEDS ORDERED: CLOPIDOGREL 75 MG TABLET ONE (07:43)
[2023-12-11] MEDS ORDERED: ATROPINE SULF 1 MG/10 ML SYR IV ONE (07:43)
[2023-12-11] MEDS ORDERED: LIDOCAINE 1% 20 ML MDV ONE (07:43)
[2023-12-11] MEDS ORDERED: HEPARIN 10,000 UNIT/10 ML VIAL IV ONE (07:43)
[2023-12-11] MEDS ORDERED: ASPIRIN 325 MG TAB ONE (07:44)
[2023-12-11] MEDS ORDERED: TICAGRELOR 90 MG TABLET PO ONE (07:44)
[2023-12-11] MEDS ORDERED: HEPARIN 5000 UNIT/ML 1 ML VIAL ONE (07:44)
--- NOTE | 2023-12-11 09:12 | P.PN ---
Subjective Date of Service: 12/11/23 Primary Care Provider: Walt Gama MD Chief Complaint: Chest pain, shortness of breath Subjective: No new changes, No C/O voiced, Tolerating diet, Ambulating, Improving Review of Systems 10-point ROS is otherwise unremarkable Physical Examination - Vital Signs Temperature: 97.8 F Blood Pressure: 108/60 Pulse: 63 Respirations: 17 Pulse Ox (%): 95 - Physical Exam General: Alert, In no apparent distress HEENT: Atraumatic, PERRLA, EOMI Neck: Supple, JVD not distended Respiratory: Clear to auscultation bilaterally, Normal air movement Cardiovascular: Regular rate/rhythm, Normal S1 S2 Gastrointestinal: Normal bowel sounds, No tenderness Musculoskeletal: No tenderness Integumentary: No rashes Neurological: Normal speech, Normal tone, Normal affect Lymphatics: No axilla or inguinal lymphadenopathy - Studies Medications List Reviewed: Yes Assessment And Plan - Current Problems (Diagnosis) (1) NSTEMI (non-ST elevated myocardial infarction) Current Visit: Yes Status: Acute Plan: for coronary angiogram done and shows significant distal LM, proximal LAD/LCX and RCA disease Inpatient transfer for CABG evaluation Heparin drip ACS protocol ASA 81 mg daily Lipitor Echo shows low normal LV systolic function with DD, moderate MR. (2) Acute heart failure Current Visit: Yes Status: Acute Plan: LVEDP is elevated, echo shows elevated filling pressures Increase Lasix to 40 mg IV BID monitor input and output and electrolytes. (3) HTN (hypertension) Current Visit: Yes Status: Acute Plan: continue lopressor, lsinopril.
[2023-12-11 10:34] VITALS: O2SAT 99
--- NOTE | 2023-12-11 15:34 | P.DS ---
Admission Date: 12/09/23 Discharge Date: 12/11/23 Primary Care Provider: Walt Gama MD Reason for Admission: Chest pain, shortness of breath Brief History of Present Illness: Mr. Caruso is a 73-year-old gentleman with a past medical history of hypertension, vascular disease/PVD, and recent AK. He states he was in his normal state of health when he went to sleep and awoke with significant chest pain and shortness of breath. EMS was called and he received Solu-Medrol, albuterol, and Atrovent en route to the emergency department. On arrival to the emergency department, his SpO2 was 87% on 5 L of O2. BiPAP was initiated on his arrival and now patient is comfortable, chest pain-free, and SpO2 is 99 to 100%. We will admit Mr. Caruso for further evaluation and treatment with consultation to cardiology. EKG sinus tach rhythm with possible lateral ischemia with flipped T waves in V5 and V6, rate 101 - Physical Exam General: Alert, In no apparent distress, Oriented x3 HEENT: Atraumatic, Normocephalic Neck: Supple Respiratory: Crackles/rales (Bilateral bases), Other (States he likes BiPAP, chest pain relieved) Cardiovascular: Regular rate/rhythm, Edema (Left lower extremity) Capillary refill: >2 Seconds Gastrointestinal: Soft and benign Musculoskeletal: Other (Right BKA) Integumentary: Other (Warm and dry) Neurological: Normal speech, Normal tone, Normal affect Lymphatics: No axilla or inguinal lymphadenopathy Hospital Course: 73-year-old gentleman with a past medical history of hypertension, vascular disease/PVD, and recent AK. He states he was in his normal state of health when he went to sleep and awoke with significant chest pain and shortness of breath. EMS was called and he received Solu-Medrol, albuterol, and Atrovent en route to the emergency department. On arrival to the emergency department, his SpO2 was 87% on 5 L of O2. BiPAP was initiated on his arrival and now patient is comfortable. and SpO2 is 99 to 100%. We will admit Mr. Caruso status post 12/09 heart catheterization. Significant CAD, plan to transfer to [place] for CABG evaluation, continue heparin drip, aspirin 81 mg, Lipitor, echocardiogram showed Echo shows low normal LV systolic function with DD, moderate MR. Cardiology evaluation status post 12/09 heart catheterization. Significant CAD, plan to transfer to [place] for CABG evaluation, continue heparin drip, aspirin 81 mg, Lipitor, echocardiogram showed Echo shows low normal LV systolic function with DD, moderate MR. Assessment Acute hypoxic respiratory failure secondary to decompensated heart failure telemetry, resume home antihypertensive, antilipid, as needed analgesia Acute on chronic heart failure diuretics, daily weights, Small bilateral pleural effusions diuretics, lactic acidosis elevated troponin NSTEMI Right below the knee amputation [place] in September 2023. Smokes half pack a week. Educated on tobacco sensation Continue home medicines as previously prescribed GOAL: Clear understanding of disease process INSTRUCTIONS: Physician Discharge Instructions: -Transfer to [place] for CABG evaluation -Follow-up with PCP in 1 to 2 weeks -Please call at [phone] if any questions regarding hospital stay -Please call nursing station at [phone] if any nursing or medication questions -Return to the emergency room if symptoms worsen Diet: ADA, low sodium Activity: Fall precautions <Rocio Herman - Last Filed: 12/12/23 05:54> Admission Date: 12/09/23 Discharge Date: 12/11/23 Hospital Course: Patient was seen and examined. Events of the last 24 hours have been noted. Spoke with with ANDERS regarding patient's clinical picture after evaluating and examining the patient independently. I performed a substantial part of the MDM during this patient's care today. I personally made or approved the documented management plan and acknowledge its risk of complications. I agree with the findings and documentation provided in the ANDERS's notes. Patient will be transferred to a tertiary care facility in [place] for CABG evaluation. <Jordon Murry - Last Filed: 12/30/23 23:46> Disposition: [facility] Discharge Condition: FAIR Vital Signs/Physical Exam: Temp Pulse Resp BP Pulse Ox 97.8 F 77 16 140/65 99 12/11/23 12:00 12/11/23 12:00 12/11/23 12:00 12/11/23 12:00 12/11/23 12:00 Laboratory Data at Discharge: WBC 6.80 thou/uL (4.3-10.9) 12/11/23 05:32 Hgb 8.0 g/dL (13.6-17.9) L 12/11/23 05:32 Hct 23.5 % (39.6-49.0) L 12/11/23 05:32 Plt Count 193 thou/uL (152-406) 12/11/23 05:32 PT 10.4 SECONDS (9.4-12.5) 12/09/23 10:22 INR 0.93 12/09/23 10:22 APTT 29.7 SECONDS (24.3-36.9) 12/09/23 14:38 Sodium 145 mEq/L (136-145) 12/11/23 05:32 Potassium 3.9 mEq/L (3.5-5.1) 12/11/23 05:32 BUN 25 mg/dL (7-18) H 12/11/23 05:32 Creatinine 1.39 mg/dL (0.70-1.30) H 12/11/23 05:32 Glucose 99 mg/dL (74-106) 12/11/23 05:32 Total Bilirubin 0.5 mg/dL (0.2-1.0) 12/09/23 11:15 AST 22 U/L (15-37) 12/09/23 11:15 ALT 30 U/L (16-61) 12/09/23 11:15 Alkaline Phosphatase 87 U/L (45-117) 12/09/23 11:15 <Rocio Herman - Last Filed: 12/12/23 05:54> Vital Signs/Physical Exam: Temp Pulse Resp BP Pulse Ox 97.5 F 69 16 117/66 95 12/11/23 16:00 12/11/23 16:00 12/11/23 16:00 12/11/23 16:00 12/11/23 16:00 Laboratory Data at Discharge: WBC 6.80 thou/uL (4.3-10.9) 12/11/23 05:32 Hgb 8.0 g/dL (13.6-17.9) L 12/11/23 05:32 Hct 23.5 % (39.6-49.0) L 12/11/23 05:32 Plt Count 193 thou/uL (152-406) 12/11/23 05:32 PT 10.4 SECONDS (9.4-12.5) 12/09/23 10:22 INR 0.93 12/09/23 10:22 APTT 29.7 SECONDS (24.3-36.9) 12/09/23 14:38 Sodium 145 mEq/L (136-145) 12/11/23 05:32 Potassium 3.9 mEq/L (3.5-5.1) 12/11/23 05:32 BUN 25 mg/dL (7-18) H 12/11/23 05:32 Creatinine 1.39 mg/dL (0.70-1.30) H 12/11/23 05:32 Glucose 99 mg/dL (74-106) 12/11/23 05:32 Total Bilirubin 0.5 mg/dL (0.2-1.0) 12/09/23 11:15 AST 22 U/L (15-37) 12/09/23 11:15 ALT 30 U/L (16-61) 12/09/23 11:15 Alkaline Phosphatase 87 U/L (45-117) 12/09/23 11:15 <Jordon Murry - Last Filed: 12/30/23 23:46> Diet: AHA Activity: Fall precautions Time spent managing pt's care (in minutes): 55 <Rocio Herman - Last Filed: 12/12/23 05:54> <Jordon Murry - Last Filed: 12/30/23 23:46> Home Medications: Amlodipine [Norvasc*] 5 mg PO DAILY 12/09/23 Aspirin 81 mg PO DAILY 12/09/23 Atorvastatin Calcium 40 mg PO BEDTIME 12/09/23 Ergocalciferol (Vitamin D2) [Vitamin D 50,000 Unit Cap] 50,000 unit PO EVERY 7TH DAY 12/09/23 Gabapentin 300 mg PO TID 12/09/23 cilostazoL [Cilostazol] 100 mg PO DAILY 12/09/23 hydroCHLOROthiazide [Hydrochlorothiazide] 12.5 mg PO DAILY 12/09/23 lisinopriL [Lisinopril] 10 mg PO DAILY 12/09/23 Physician Discharge Instructions: 73-year-old gentleman with a past medical history of hypertension, vascular disease/PVD, and recent AK. He states he was in his normal state of health when he went to sleep and awoke with significant chest pain and shortness of breath. EMS was called and he received Solu-Medrol, albuterol, and Atrovent en route to the emergency department. On arrival to the emergency department, his SpO2 was 87% on 5 L of O2. BiPAP was initiated on his arrival and now patient is comfortable. and SpO2 is 99 to 100%. We will admit Mr. Caruso status post 12/09 heart catheterization. Significant CAD, plan to transfer to [place] for CABG evaluation, continue heparin drip, aspirin 81 mg, Lipitor, echocardiogram showed Echo shows low normal LV systolic function with DD, moderate MR. Cardiology evaluation status post 12/09 heart catheterization. Significant CAD, plan to transfer to [place] for CABG evaluation, continue heparin drip, aspirin 81 mg, Lipitor, echocardiogram showed Echo shows low normal LV systolic function with DD, moderate MR. Assessment Acute hypoxic respiratory failure secondary to decompensated heart failure telemetry, resume home antihypertensive, antilipid, as needed analgesia Acute on chronic heart failure diuretics, daily weights, Small bilateral pleural effusions diuretics, lactic acidosis elevated troponin NSTEMI Right below the knee amputation [place] in September 2023. Smokes half pack a week. Educated on tobacco sensation Continue home medicines as previously prescribed GOAL: Clear understanding of disease process INSTRUCTIONS: Physician Discharge Instructions: -Transfer to [place] for CABG evaluation -Follow-up with PCP in 1 to 2 weeks -Please call at [phone] if any questions regarding hospital stay -Please call nursing station at [phone] if any nursing or medication questions -Return to the emergency room if symptoms worsen Diet: ADA, low sodium Activity: Fall precautions Followup: Pinky Gama NP [Primary Care Provider] - Rajesh Jean Baptiste MD [ACTIVE - CAN ADMIT] -
[2023-12-11 16:52] VITALS: BP 117/66; TEMP 97.5
--- NOTE | 2023-12-13 12:07 | EKG ---
Test Date: 2023-12-09 Test Time: 23:56:15 Real Estate Appraiser Supervisor: AIDA MEASUREMENT RESULTS: Intervals: Rate: 79 GA: 138 QRSD: 92 QT: 442 QTc: 506 [place]: P: 42 GA: 138 QRS: 69 T: 90 INTERPRETIVE STATEMENTS: Normal sinus rhythm Possible Left atrial enlargement Nonspecific T wave abnormality Prolonged QT Abnormal ECG Compared to ECG 12/09/2023 10:16:35 T-wave abnormality now present Prolonged QT interval now present Sinus tachycardia no longer present Myocardial infarct finding no longer present ST (T wave) deviation no longer present Possible ischemia no longer present Electronically Signed On 12-13-23 11:57:18 CDT by Rajesh Jean Baptiste
--- NOTE | 2023-12-13 12:10 | EKG ---
Test Date: 2023-12-09 Test Time: 10:16:35 Insulation Engineman: SHERICE MEASUREMENT RESULTS: Intervals: Rate: 101 CO: 146 QRSD: 84 QT: 338 QTc: 438 [place]: P: 57 CO: 146 QRS: 74 T: -89 INTERPRETIVE STATEMENTS: Sinus tachycardia Cannot rule out Inferior infarct, age undetermined ST & T wave abnormality, consider lateral ischemia Abnormal ECG No previous ECG available for comparison Electronically Signed On 12-13-23 11:58:03 CDT by Rajesh Jean Baptiste
--- NOTE | 2023-12-13 12:53 | OP ---
Date of Procedure: 12/11/2023 Surgeon: Rajesh Jean Baptiste Procedures Performed: 1.Left heart catheterization. 2.Selective coronary angiogram. Indication For Procedure: Unstable angina. Complications: None. Estimated Blood Loss: Less than 50 cc. Access: Right radial, closed by TR band. Sedation Time: 20 minutes with 1 of Versed and 25 of fentanyl. Description Of Procedure: After risks, benefits, and alternatives were explained to the patient, the patient agreed to proceed with the procedure and signed informed consent. The patient was [facility] to the cathode ray tube assembler, prepped and draped in sterile fashion. A time-out was performed. Sedation was administered. Next, right radial access was obtained. [place] 4 catheter was advanced over J-wire to the LV cavity. LVEDP was obtained. Pullback did not show any gradient. Same catheter was used for selective angiogram of the left and right coronary systems. At the end of procedure, catheter was re moved over a J-wire. Sheath was removed. TR band was applied. Hemostasis achieved and the patient was moved back to recovery in stable condition. Findings: 1.Left main, distal calcified 90% disease. 2.LAD, proximal calcified 70% disease, then mild luminal irregularities. 3.Left circ, proximal 80% calcified disease, then mild luminal irregularities. 4.RCA, ostial to proximal and mid diffuse calcified 99% to 100% disease with [id number] collatera ls into RPDA. 5.LVEDP 34 mmHg. Assessment And Plan: 1.Significant distal left main, proximal LAD, proximal left circ and RCA disease. 2.Elevated filling pressure. 3.Plan will be to inpatient transfer for CABG evaluation. SCAR/ARMANDO Voice ID: [id number] Report ID: [id number]
== END 2023-12-11 20:35 | disposition short-term general hospital (02) | DRG 280 ==
LOC: ER 10:05 → ERHOLD 13:04 → 2ND 13:49
PROVIDERS: ADMIT Internal Medicine; ATTEND Hospitalist
PROC: 5A09457 Assistance with Respiratory Ventilation, 24-96 Consecutive Hours, Continuous Positive Airway Pressure (ICD-10-PCS; 2023-12-09)
PROC: 4A023N7 Measurement of Cardiac Sampling and Pressure, Left Heart, Percutaneous Approach (ICD-10-PCS; principal; 2023-12-11)
PROC: B2111ZZ Fluoroscopy of Multiple Coronary Arteries using Low Osmolar Contrast (ICD-10-PCS; 2023-12-11)
DX: I11.0 Hypertensive heart disease with heart failure (principal); J96.01 Acute respiratory failure with hypoxia; I21.4 Non-ST elevation (NSTEMI) myocardial infarction; E87.20 Acidosis, unspecified; I50.9 Heart failure, unspecified; I25.2 Old myocardial infarction; I25.10 Atherosclerotic heart disease of native coronary artery without angina pectoris; F17.200 Nicotine dependence, unspecified, uncomplicated; R79.89 Other specified abnormal findings of blood chemistry; Z60.2 Problems related to living alone; Z79.82 Long term (current) use of aspirin; Z90.49 Acquired absence of other specified parts of digestive tract; Z89.511 Acquired absence of right leg below knee
CPT/HCPCS: 36415; 71045; 71275; 76937; 80048; 80053; 83605; 83880; 84484; 85025; 85610; 85730; 87040; 93005; 93306; 93458; 94660; 94760; 96365; 96375; 99152; 99153; 99285; C1893; J0461; J0696; J1644; J1940; J2003; J2250; J3010; J7040; J7050; Q9966; Q9967